=== PATIENT | male | born 1995 | race Caucasian/White ===

== ENCOUNTER 2018-09-14 16:42 | Emergency (ER) | payer SELFPAY ==
[~2018-09-14] VITALS: Ht 172.7 cm; Wt 58.1 kg
[2018-09-14 16:46] VITALS: Ht 172.7 cm; Wt 58.1 kg
[2018-09-14 18:27] VITALS: BP 128/78
== END 2018-09-14 18:27 | disposition home or self-care (01) ==
LOC: ED 16:42
DX: S61.213A Laceration without foreign body of left middle finger without damage to nail, initial encounter (principal); X58.XXXA Exposure to other specified factors, initial encounter; Y93.89 Activity, other specified; Y92.89 Other specified places as the place of occurrence of the external cause; Y99.8 Other external cause status
CPT/HCPCS: J1885

== ENCOUNTER 2018-09-16 13:04 | Emergency (ER) | payer SELFPAY ==
[~2018-09-16] VITALS: Ht 172.7 cm; Wt 58.1 kg
[2018-09-16 13:09] VITALS: BP 133/67; Ht 172.7 cm; Wt 58.1 kg
== END 2018-09-16 14:00 | disposition home or self-care (01) ==
LOC: ED 13:04
DX: S61.213D Laceration without foreign body of left middle finger without damage to nail, subsequent encounter (principal); X58.XXXD Exposure to other specified factors, subsequent encounter; J45.909 Unspecified asthma, uncomplicated